=== PATIENT | female | born 1970 | race Caucasian/White ===

== ENCOUNTER → 2016-07-14 | Day surgery (SDC) | payer OTHER ==
[~2016-07-14] MED LIST: BRINTELLIX5 MG PO; LISINOPRIL-HCTZ1 T15 PO; MOBIC PO; PRILOSEC PO; TIZANIDINE HCL2 MG PO
--- NOTE | ~2016-07-14 | OR ---
Unit #: [id number] #: [id number] Patient: LIBERTY HILLMAN [id number] [address] [address] [id number] O MR#: [id number] NAME: LIBERTY HILLMAN ROOM: Date of Procedure: 07/14/2016 Admission Date: 07/14/2016 Surgeon: Jeff Chao M.D. : 1970 Attending Physician: Jeff Chao M.D. OPERATIVE REPORT REFERRING PHYSICIAN Primary care. SERVICES PROVIDED 1. Therapeutic right sacroiliac joint steroid injection. 2. Fluoroscopy of the right sacroiliac joint. 3. IV sedation to facilitate the above. PREOPERATIVE DIAGNOSES 1. Right sacroiliac joint syndrome. 2. Other medical history included obstructive sleep apnea, noncompliant with CPAP, degenerative disk disease of lumbar spine and cervical spine, hypertension, bipolar disorder, manic depressive psychosis. POSTOPERATIVE DIAGNOSES 1. Right sacroiliac joint syndrome. 2. Other medical history; obstructive sleep apnea, noncompliant with CPAP, degenerative disk disease of lumbar spine and cervical spine, hypertension, bipolar disorder, manic depressive psychosis. PROCEDURE PERFORMED Sacroiliac joint steroid injection using fluoroscopy. FOLLOW-UP/REVIEW OF SYSTEMS/PHYSICAL EXAM Ms. Hillman has right sacroiliac joint related pain and has recommended right sacroiliac joint steroid injection. She has no medical contraindication to the procedure that was performed as follows with her consent. INDICATIONS/COMMENTS AND CONSENTS/STATEMENT OF MEDICAL NECESSITY The patient's current medications, allergies and vital signs are documented in the nursing assessment. The risks and benefits of the intervention were discussed with the patient in detail including but not limited to infection, bleeding, meningitis, steroid induced side-effects, nerve damage, paralysis, spinal headaches, neuritis, persistent or worsening pain. The patient wishes to proceed. A separate pain assessment is also in the chart. I have reviewed all of this and have reviewed this with the patient. A current History and Physical is also attached. DESCRIPTION OF PROCEDURE 1. Monitoring and positioning: After appropriate discussions it was decided to perform the procedure under local anesthesia with supplemental Unit #: [id number] #: [id number] Patient: LIBERTY HILLMAN intravenous sedation. Vital signs were monitored in pre, intra and post-procedure phase. Monitoring included EKG, non-invasive BP, pulse oximetry, and temperature. These are documented and were stable. Appropriate supports and restraints were used. 2. Sedation: A total of 2 mg of Versed and 100 mcg of fentanyl was administered. 3. Sacroiliac Joint injection/fluoroscopy: The patient was placed in the prone position. Positional supports were used. Fluoroscopy of the sacroiliac joint was performed. Sterile prep and drape with carried out with ChloraPrep. Local anesthesia was with infiltrated with 3 mL of preservative-free 1% Lidocaine. Once anesthesia was established, a 22 gauge Quincke spinal needle was inserted into the right sacroiliac joint and advanced to the inferior aspect of the joint, to penetrate the posterior joint capsule, into the joint space, using fluoroscopic guidance. Needle placement tested negative for intravascular placement. An intra-operative arthrogram was now performed. Intra-operative arthrogram: 0.5 mL of Isovue-M300 was injected through the spinal needle. The dye was seen to spread linearly along the sacroiliac joint. There was no intravascular spread of contrast. Right sacroiliac joint steroid injection was now performed using a total of 1 mL of a solution containing 4% PF Lidocaine with 40 mg of Depo-Medrol at each of the above site. The needle was then removed intact. The skin was washed off. Prep solution and dressings were applied at the injection site. The patient tolerated the procedure well. The patient was then observed in the recovery area for 30 minutes. RESULTS The patient had a consistent block with the dose of local anesthetic used. Pain relief was satisfactory. There were no complications or side effects. DISCHARGE CONDITION 1. Patient was discharged in satisfactory condition accompanied by a family member. 2. Post-procedure instructions were given. PLAN The patient will return to the clinic for re-assessment and possible repeat intervention. I thank the patient's referring physician for the opportunity to participate in the care of this patient. Please do not hesitate to call for any questions regarding this patient's pain management. Dictated by... Darrin Garcia TD: 07/15/2016 03:00 JOB #: [id number] Unit #: [id number] #: [id number] Patient: LIBERTY HILLMAN OPERATIVE REPORT Page 1 of 1 X Jeff Chao MD PROCEDURE OPERATIVE NOTE
== END | disposition home or self-care (01) ==
LOC: CCSC 07:28
DX: M53.3 Sacrococcygeal disorders, not elsewhere classified (principal); G47.33 Obstructive sleep apnea (adult) (pediatric); Z91.19 Patient's noncompliance with other medical treatment and regimen; M50.30 Other cervical disc degeneration, unspecified cervical region; M51.36 Other intervertebral disc degeneration, lumbar region; I10 Essential (primary) hypertension; F31.9 Bipolar disorder, unspecified
CPT/HCPCS: J1040; J2250; J3010

== ENCOUNTER 2016-11-04 08:57 | Emergency (ER) | payer OTHER ==
--- NOTE | ~2016-11-04 | CR20 ---
[facility] A Service of [facility] RADIOLOGY TEXT RESULTS PATIENT: LIBERTY CISSE LOCATION: [facility]FT[facility] : [birth year] UNIT #: [id number] AGE: [address]: Maria M De La Torre APRN SEX: F ORDER DR: [id number] [facility] [address] [place], [place] [address] [id number] E MR#: [id number] Acc #: [id number] NAME: LIBERTY CISSE : 1970 SEX: F STUDY DATE/TIME: 11/04/2016 09:46 UNIT: [facility] ROOM: STUDY DESCRIPTION: CR Ankle Min 3 Views Lt Attending Physician: Maria M De La Torre A.P.R.N. Ordering Physician: Ed Doctor [id number] [facility] Primary Care Physician: Generic Doctor Not In System MEDICAL IMAGING REPORT This report is preliminary unless electronic signature is present EXAM Left ankle 3 views, 11/04/2016 09:46 hours HISTORY Patient states she fell this morning and felt ankle pop when she fell. Ankle pain. COMPARISON None FINDINGS AP, lateral and oblique views demonstrate a subtle transverse lucency through the medial malleolus likely a nondisplaced fracture. No definite lateral malleolar fracture is seen. The ankle mortise is intact. There is some periosteal thickening along the medial aspect of the distal fibula near the articulation with the tibia likely indicative of previous injury at the syndesmosis. The ankle mortise appears symmetric today. IMPRESSION 1. There is a horizontal lucency through the medial malleolus which could represent a fracture. If this is real this is nondisplaced. The ankle mortise is normal. No distal fibular fracture is seen. 2. There is some thickening of the periosteum distally at the articulation between the tibia and fibula most likely indicative of previous injury at the syndesmosis. Dictated by... Kelsie Geller M.D. THIS IS AN ELECTRONICALLY VERIFIED REPORT Kelsie Geller M.D. at 11/04/2016 2:30 PM CHARISSE/anival [facility] A Service of [facility] RADIOLOGY TEXT RESULTS PATIENT: LIBERTY CISSE LOCATION: [facility] : [birth year] UNIT #: [id number] AGE: [address]: Maria M De La Torre APRN SEX: F ORDER DR: TD: 11/04/2016 11:01 JOB #: [id number] MEDICAL IMAGING REPORT Page 1 of 1 COPY
--- NOTE | ~2016-11-04 | CR126 ---
[facility] A Service of [facility] RADIOLOGY TEXT RESULTS PATIENT: LIBERTY CISSE LOCATION: [facility] : [birth year] UNIT #: [id number] AGE: [address]: Maria M De La Torre APRN SEX: F ORDER DR: [id number] [facility] [address] [place], [place] [address] [id number] E MR#: [id number] Acc #: [id number] NAME: LIBERTY CISSE : 1970 SEX: F STUDY DATE/TIME: 11/04/2016 0951 UNIT: [place] ROOM: STUDY DESCRIPTION: CR Foot Complete Min 3 View Lt Attending Physician: Maria M De La Torre A.P.R.N. Ordering Physician: Ed Griffin Frideman M.D. Primary Care Physician: No Primary Care Physician MEDICAL IMAGING REPORT This report is preliminary unless electronic signature is present EXAM Left foot, 3 views, 11/04/2016, 0951 hours. CLINICAL HISTORY Patient fell this morning and felt pop in foot and ankle. Foot and ankle pain since fall. COMPARISON None. FINDINGS AP, lateral, and oblique views demonstrate acute fracture through the medial malleolus extending into the tibiotalar articulation better demonstrated on the foot films than on the ankle film. There is no acute foot fracture. IMPRESSION There is a fracture through the medial malleolus of the distal tibia better demonstrated on the foot film than on the ankle films. This is acute and nondisplaced. No foot fracture is seen. Dictated by... Kelsie Geller M.D. THIS IS AN ELECTRONICALLY VERIFIED REPORT Kelsie Geller M.D. at 11/04/2016 2:30 PM CHARISSE/leighann TD: 11/04/2016 11:26 JOB #: [id number] [facility] A Service of [facility] RADIOLOGY TEXT RESULTS PATIENT: LIBERTY CISSE LOCATION: [facility] : [birth year] UNIT #: [id number] AGE: [address]: Maria M De La Torre APRN SEX: F ORDER DR: MEDICAL IMAGING REPORT Page 1 of 1 COPY
== END 2016-11-04 11:15 | disposition home or self-care (01) ==
LOC: CED 08:57 → CFTX 08:57 → CED 10:48 → CFTX 11:15
DX: S82.52XA Displaced fracture of medial malleolus of left tibia, initial encounter for closed fracture (principal); I10 Essential (primary) hypertension; K21.9 Gastro-esophageal reflux disease without esophagitis; X58.XXXA Exposure to other specified factors, initial encounter; Y92.69 Other specified industrial and construction area as the place of occurrence of the external cause; Y99.0 Civilian activity done for income or pay
CPT/HCPCS: 29515; 73610; 73630; 99283